=== PATIENT | female | born 1995 | race Two or more races ===

== ENCOUNTER → 2020-06-10 | Outpatient (CLI) | payer OTHER ==
[~2020-06-10] MED LIST: ASCO500C PO; BIOT1CAP3 PO; CALC-31 PO; IRON; MULT-445 PO; ONDA4TAB7 PO; PANT20TA2 PO; VIT C
== END ==
LOC: LAB 10:05
PROVIDERS: ATTEND Surgery
DX: Z01.812 Encounter for preprocedural laboratory examination (principal); K81.9 Cholecystitis, unspecified; Z20.822 Contact with and (suspected) exposure to COVID-19
CPT/HCPCS: U0003

== ENCOUNTER 2020-06-13 06:30 | Day surgery (SDC) | payer OTHER ==
[~2020-06-13] VITALS: Ht 167.6 cm; Wt 80.5 kg
[~2020-06-13 06:30] MED LIST changes: +ACETAMINOPHEN 500 MG TABLET PO PRN; +HYDROmorphone 2 MG/ML VIAL IVP PRN; +IV RINGERS,LACTATED 1000ML 1,000 ML IV SCH; +MORPHINE SULFATE 2 MG/ML VIAL. IVP PRN; +PROCHLORPERAZINE 10 MG/2 ML VIAL. IVP PRN; +fentaNYL PF VIAL 100 MCG/2 ML VIAL IVP PRN
[2020-06-13] MEDS ORDERED: BUPIVACAINE-EPI 0.25% 30 ML VIAL KIT. ONE (06:59)
[2020-06-13] MEDS ORDERED: IOHEXOL 300 MG/ML 50 ML VIAL. ONE (06:59)
[2020-06-13] MEDS ORDERED: SURGICEL HEMOSTAT 4X8 EACH. ONE (07:00)
[2020-06-13] MEDS ORDERED: ONDANSETRON PF 4 MG/2 ML VIAL. ONE (07:02)
[2020-06-13] MEDS ORDERED: PROPOFOL 10 MG/ML (20ML) VIAL. IV ONE (07:02)
[2020-06-13] MEDS ORDERED: LIDOCAINE 2% PF 5 ML VIAL. ONE (07:02)
[2020-06-13] MEDS ORDERED: DEXAMETHASONE SOD PHOS 4 MG/ML VIAL ONE (07:02)
[2020-06-13] MEDS ORDERED: fentaNYL PF VIAL 250 MCG/5 ML VIAL ONE (07:03)
[2020-06-13] MEDS ORDERED: MIDAZOLAM HCL/PF 2 MG/2 ML VIAL. ONE (07:03)
--- NOTE | 2020-06-13 07:12 | PDOC1 ---
History and Physical Date of Admission Date of Admission DATE: 06/13/20 TIME: 07:09 Identification/Chief Complaint Chief Complaint Abdominal pain Source Source: Chart review, Patient History of Present Illness History of Present Illness 25-year-old female with complaints of right upper quadrant abdominal pain radiating to her back especially worse after eating occasionally she has had some nausea and vomiting. Ultrasound of her right upper quadrant showed gallstones. Has a history of of bariatric surgery and has lost 60 pounds Past Medical History Cardiovascular: No pertinent hx Pulmonary: No pertinent hx GI: No pertinent hx Heme/Onc: No pertinent hx Hepatobiliary: No pertinent hx Psych: No pertinent hx Rheumatologic: No pertinent hx Infectious disease: No pertinent hx ENT: No pertinent hx Renal/: No pertinent hx Endocrine: No pertinent hx Dermatology: No pertinent hx Past Surgical History Past Surgical History: Other (Bariatric surgery laparoscopic) Family History Family History: No Significant Social History Smoke: No ALCOHOL: rare Drugs: None Current Medications Current Medications Current Medications Fentanyl Citrate (Fentanyl 2ml Vial) 25 mcg PRN Q5MIN PRN IVP MILD PAIN 1-3; Start 06/13/20 at 06:00; Stop 06/14/20 at 05:59 Fentanyl Citrate (Fentanyl 2ml Vial) 50 mcg PRN Q5MIN PRN IVP MODERATE PAIN 4- 6; Start 06/13/20 at 06:00; Stop 06/14/20 at 05:59 Morphine Sulfate (Morphine Sulfate) 1 mg PRN Q10MIN PRN IVP SEVERE PAIN 7-10; Start 06/13/20 at 06:00; Stop 06/14/20 at 05:59 Ringer's Solution 1,000 ml @ 30 mls/hr Q24H IV Last administered on 06/13/20at 06:54; Start 06/13/20 at 06:00; Stop 06/13/20 at 17:59 Hydromorphone HCl (Dilaudid) 0.5 mg PRN Q10MIN PRN IVP SEVERE PAIN 7-10, 2nd CHOICE; Start 06/13/20 at 06:00; Stop 06/14/20 at 05:59 Prochlorperazine Edisylate (Compazine) 5 mg PACU PRN PRN IVP NAUSEA, MRX1; Start 06/13/20 at 06:00; Stop 06/14/20 at 05:59 Acetaminophen (Tylenol) 100 mg PREOP 1X PRN PO PRIOR TO PROCEDURE; Start 06/13/20 at 06:00; Stop 06/13/20 at 06:19; Status DC Cefazolin Sodium/ Dextrose 50 ml @ 100 mls/hr 1X PREOP PRN IV PRIOR TO PROCEDURE; Start 06/13/20 at 06:00; Stop 06/13/20 at 18:00 Acetaminophen (Tylenol) 1,000 mg PREOP 1X PRN PO PRIOR TO PROCEDURE Last administered on 06/13/20at 06:54; Start 06/13/20 at 06:19; Stop 06/13/20 at 18:00 Bupivacaine HCl/ Epinephrine Bitart (Sensorcain-Epi 0.25% Kit) 30 ml STK-MED ONCE .ROUTE ; Start 06/13/20 at 06:59; Stop 06/13/20 at 07:00; Status DC Iohexol (Omnipaque 300 Mg/ml) 50 ml STK-MED ONCE .ROUTE ; Start 06/13/20 at 06:59; Stop 06/13/20 at 07:00; Status DC Cellulose (Surgicel Hemostat 4x8) 1 each STK-MED ONCE .ROUTE ; Start 06/13/20 at 07:00; Stop 06/13/20 at 07:00; Status DC Propofol (Diprivan) 200 mg STK-MED ONCE IV ; Start 06/13/20 at 07:02; Stop 06/13/20 at 07:03; Status DC Lidocaine HCl (Lidocaine Pf 2% Vial) 5 ml STK-MED ONCE .ROUTE ; Start 06/13/20 at 07:02; Stop 06/13/20 at 07:03; Status DC Ondansetron HCl (Zofran) 4 mg STK-MED ONCE .ROUTE ; Start 06/13/20 at 07:02; Stop 06/13/20 at 07:03; Status DC Dexamethasone Sodium Phosphate (Decadron) 4 mg STK-MED ONCE .ROUTE ; Start 06/13/20 at 07:02; Stop 06/13/20 at 07:03; Status DC Midazolam HCl (Versed) 2 mg STK-MED ONCE .ROUTE ; Start 06/13/20 at 07:03; Stop 06/13/20 at 07:03; Status DC Fentanyl Citrate (Fentanyl 5ml Vial) 250 mcg STK-MED ONCE .ROUTE ; Start 06/13/20 at 07:03; Stop 06/13/20 at 07:03; Status DC Active Scripts Active Reported Vitamin C (Ascorbic Acid) 500 Mg Capsule.er 1 Cap PO DAILY 30 Days Biotin 1 Mg Capsule 1 Cap PO DAILY 30 Days Multivitamins (Multivitamin) 1 Each Tablet 1 Tab PO DAILY [iron + vit c] Zofran (Ondansetron Hcl) 4 Mg Tablet 1 Tab PO Q8HRS Calcium 500 + D Tablet (Calcium Carbonate/Vitamin D3) 1 Each Tablet 1 Tab PO DAILY 30 Days Protonix (Pantoprazole Sodium) 20 Mg Tablet.dr 20 Mg PO BID Allergies Allergies: Coded Allergies: No Known Drug Allergies (Unverified , 06/12/20) ROS Gastrointestinal: Yes Nausea, Yes Vomiting, Yes Abdominal Pain Physical Exam General: Alert, Oriented X3, Cooperative, No acute distress HEENT: Atraumatic, EOMI Lungs: Clear to auscultation, Normal air movement Heart: RRR, no murmurs Abdomen: Normal bowel sounds, Soft, Other (Mildly tender to palpation right upper quadrant) Rectal Exam: not examined Extremities: No edema Skin: No significant lesion Neuro: Normal speech Psych/Mental Status: Mental status NL Vitals Vitals Vital Signs Date Time Temp Pulse Resp B/P (MAP) Pulse Ox O2 Delivery O2 Flow Rate FiO2 06/13/20 06:51 97.3 73 18 125/78 100 Room Air 97.3 Labs Labs Laboratory Tests Test 06/13/20 05:48 Bedside Urine HCG, Qualitative Hcg negative (Negative) Laboratory Tests Test 06/13/20 05:48 Bedside Urine HCG, Qualitative Hcg negative (Negative) VTE Prophylaxis Ordered VTE Prophylaxis Devices: Yes VTE Pharmacological Prophylaxi: Contraindicated Assessment/Plan Assessment/Plan Symptomatic cholelithiasis plan laparoscopic cholecystectomy Justifications for Admission Other Justification RICHARD VERDE MD Jun 13, 2020 07:12
[2020-06-13] MEDS ORDERED: NEOSTIGMINE METHYLSULFATE 5 MG/5 ML SYRINGE. ONE (07:17)
[2020-06-13] MEDS ORDERED: ROCURONIUM 50 MG/5 ML VIAL. ONE (07:17)
[2020-06-13] MEDS ORDERED: SEVOFLURANE 61 TO 120 MINUTES. IH ONE (07:17)
[2020-06-13] MEDS ORDERED: GLYCOPYRROLATE 1 MG/5 ML VIAL. ONE (07:17)
[2020-06-13] MEDS ORDERED: KETOROLAC 30 MG/ML VIAL. ONE (07:53)
--- NOTE | 2020-06-13 07:58 | PDOC4 ---
Operative Note Operative Note Date: June 132020 at 756 Preoperative diagnosis: Symptomatic cholelithiasis Postoperative diagnosis: Same Procedure: Laparoscopic cholecystectomy Surgeon: Kapil Specimen: Gallbladder Dictation: Patient is 25-year-old female with right upper quadrant abdominal pain ultrasound showing gallstones. Procedure of laparoscopic cholecystectomy was explained to the patient in detail risk benefits were also discussed including bleeding infection injury to intra-abdominal contents possible necessitating further open operations alternatives to this procedure also discussed with the patient who seemed to understand and gave a verbal written consent to have the procedure performed. Patient was taken to the operating room placed in supine position general anesthesia was initiated once patient was sleeping intubated her abdomen was prepped and draped usual sterile fashion using ChloraPrep. An area in the left upper quadrant was injected with quarter percent Marcaine with epinephrine incision was made 11 blade scalpel and a 5 mm Visiport was placed under direct visualization into the abdomen and a pneumoperitoneum was created once this was complete 5 mm camera was placed within the abdomen and inspected there were some adhesions in the left upper quadrant but otherwise normal-appearing abdomen. A 11 mm port was placed at the umbilicus under direct visualization a 5 mm port was placed in the epigastrium a 5 mm port was placed in the right midabdomen and 5 mm ports placed in the right lateral abdomen all under direct visualization. The dome of the gallbladder is grasped retracted cephalad the infundibulum of the gallbladder is grasped tract laterally exposing the triangle of adherent tissues the triangle were taken down exposing the cystic duct and cystic artery both were doubly clipped and transected the gallbladder was taken off the liver with hook electrocautery placed in Endo Catch bag removed and the umbilicus the right upper quadrant was irrigated suctioned dry hemostasis deemed be appropriate the pneumoperitoneum was reduced all ports were removed the fascial defect at the umbilicus was closed with a [id number] 0 Vicryl suture and the skin was reapproximated all port sites for subcuticular Monocryl Mastisol Steri-Strips and island dressings were applied. Patient was awakened and extubated in the operating room taken to recovery in stable condition all sponge instrument needle counts listed as correct estimated blood loss 10 mL. RICHARD VERDE MD Jun 13, 2020 07:58
--- NOTE | 2020-06-13 08:00 | DISCH ---
DISCHARGE INSTRUCTIONS Condition on Discharge Condition on Discharge: Stable Activity After Discharge Activity Instructions for Disc: Avoid exertion Other activity instructions: No lifting more than 20 pounds for 2 weeks Diet after Discharge Diet after Discharge: Low Fat Wound Incision Care Other wound/incision instructi: May shower in 24 hours Contacting the after DC Call your doctor for: If your condition worsens Follow-Up Follow up with: Dr. Verde in 2 weeks RICHARD VERDE MD Jun 13, 2020 08:00
[2020-06-13] MEDS ORDERED: fentaNYL PF VIAL 100 MCG/2 ML VIAL ONE (08:19)
[2020-06-13] MEDS: fentaNYL PF VIAL 100 MCG/2 ML VIAL IVP PRN ×2 (08:22→08:44)
[2020-06-13] MEDS ORDERED: OXYC1TAB15 PO (08:51)
[2020-06-13] MEDS ORDERED: oxyCODONE/APAP 5/325 1 TAB TABLET PO ONE ×2 (09:00)
[2020-06-13] MEDS ORDERED: oxyCODONE/APAP 5/325 1 TAB TABLET ONE (09:06)
[2020-06-13 09:10] VITALS: BP 133/86
--- NOTE | 2020-06-17 14:20 | PATHOLOGY ---
[facility] Accession Number: [id number] . 01 Material submitted: . gallbladder - GALLBLADDER . 01 Clinical history: . SYMPTOMATIC CHOLELITHIASIS LAP KEN . 02 Diagnosis: Gallbladder, laparoscopic cholecystectomy: - Cholelithiasis. - Cholesterolosis. - Chronic cholecystitis. ([facility] 06/16/2020) [facility] 06/16/2020 1615 Local . 02 Comment: There is no evidence of malignancy. ([facility] 06/16/2020) . 02 Electronically signed: . Daren Short MD, Pathologist NPI- [id number] . 01 Gross description: . Fixative: Formalin Labeled: Gallbladder and contents Specimen received: Previously opened cholecystectomy specimen Dimensions: 7.1 x 3.0 x 1.5 cm Serosa: Fernandes-pink and green and smooth with a full-thickness defect in the hepatic bed measuring 0.6 cm Lymph node: None identified Mucosa: Yellow-green with moderate yellow stippling Average wall thickness: 0.1 cm Calculi: Yes, multiple yellow-fernandes bosselated calculi are present within the gallbladder and container measuring in aggregate 4.0 x 3.0 x 0.7 cm and ranging from 0.1-0.4 cm in greatest dimension Abnormalities: None identified A1- Logging Assistant body, fundus, and the cystic duct margin. ([facility]; 06/15/2020) SY/C 06/15/2020 0813 Local . 02 Pathologist provided ICD-10: K80.10, K82.4 . 02 CPT . 606849 Specimen Comment: A courtesy copy of this report has been sent to [phone], [phone] Specimen Comment: [id number] Specimen Comment: Report sent to / DR LEE Performed at: 01 [facility] [address], [place] [id number] MD Tejas Figueroa MD Phone: [phone] Performed at: 02 [facility] [address] [place], [place] [id number] MD Daren Short MD Phone: [phone]
== END 2020-06-13 10:00 | disposition home or self-care (01) ==
LOC: SURG 06:30 → EDUNIT# 07:30 → SURG 10:00
PROVIDERS: ATTEND Surgery
DX: K80.10 Calculus of gallbladder with chronic cholecystitis without obstruction (principal); K21.9 Gastro-esophageal reflux disease without esophagitis; Z79.899 Other long term (current) drug therapy; Z98.890 Other specified postprocedural states
CPT/HCPCS: 47562; 81025; A4364; A4930; A6219; J0690; J1100; J1885; J2250; J2405; J2704; J2710; J3010; J3490; A4657; Q9967